=== PATIENT | male | born 1990 | race Caucasian/White ===

== ENCOUNTER 2016-08-22 19:51 | Emergency (ER) | payer MEDICAID, OTHER ==
[~2016-08-22] VITALS: Ht 170.2 cm; Wt 76.0 kg
[2016-08-22 20:27] VITALS: Ht 170.2 cm; Wt 76.0 kg
[2016-08-22] MEDS ORDERED: ACETAMINOPHEN 325 MG TAB PO ONE (22:00)
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
--- NOTE | 2016-08-22 22:35 | RADRPT ---
PROCEDURE: CT Cervical Spine without contrast. CLINICAL INDICATION: Neck pain status post fall. TECHNIQUE: The study was performed on a multislice multidetector CT scanner. Spiral axial 1 mm im ages were obtained through the cervical spine and reformatted at 2.5 mm slice thickness without cont rast. 1 or more of the following dose reduction techniques were utilized: Automated exposure contr ol, adjustment of the mA and/or kV according to patient's size, iterative reconstruction technique. Coronal and sagittal reformations were obtained. The images were reviewed on a PACS workstation. RADIATION DOSE: CTDIvol: 22.2 mGyDLP: 465.7 mGy-cm COMPARISON: No prior studies are available for comparison. FINDINGS: There is diffuse straightening the cervical spine without reversal of normal cervical lordosis. The vertebral body heights are maintained. There is no evidence of fracture or dislocation. The marro w density is within normal limits. The intervertebral disc spaces appear normal. The cervical canal is unremarkable. There is a no bone destruction or sclerosis. The paraspinal soft tissues are unrema rkable. No significant paraspinal soft tissue swelling. C2-3: The posterior margin of the disc, thecal sac and neural foramina are normal in appearance. C3-4: The posterior margin of the disc, thecal sac and neural foramina are normal in appearance. C4-5: The posterior margin of the disc, thecal sac and neural foramina are normal in appearance. C5-6: There is a 1-2 mm posterior disc/osteophyte complex. The thecal sac and neural foramina are p atent. C6-7: The posterior margin of the disc, thecal sac and neural foramina are normal in appearance. C7-T1: The posterior margin of the disc, thecal sac and neural foramina are normal in appearance. IMPRESSION: 1. No acute abnormality of the cervical spine. No evidence of fracture or dislocation. 2. Straightening of the cervical spine which may be related paraspinal muscle spasm versus positioni ng. 3. Minimal spondylosis/degenerative enthesopathy at C5-6 without significant narrowing of the cervi my thecal sac or neural foramina. RPTAT: HGAS .Sathish Moreland MD, MD Date Time Electronically viewed and signed by .Sathish Moreland MD, on 08/22/2016 22:35 .S/
--- NOTE | 2016-08-22 22:36 | RADRPT ---
PROCEDURE: XR shoulder. CLINICAL INDICATION: Right shoulder pain status post fall. TECHNIQUE: AP internal and external rotation views of the right shoulder were performed. COMPARISON: None available FINDINGS: The clavicle, scapula and proximal humerus are normal in appearance. The acromioclavicular joint is normal in appearance. There is no significant lateral downsloping of the acromion. The glenohumer al joint space is maintained. There is no evidence of fracture or dislocation. The right hemithora x is normal in appearance. The soft tissues are unremarkable. IMPRESSION: 1. Normal radiographs of the right shoulder. No evidence of fracture or dislocation. RPTAT: HGAS .Sathish Moreland MD, Date Time Electronically viewed and signed by .Sathish Moreland MD, on 08/22/2016 22:35 .S/
--- NOTE | 2016-08-22 22:37 | RADRPT ---
PROCEDURE: XR Chest. CLINICAL INDICATION: Chest pain status post fall. TECHNIQUE: AP view of the chest was obtained. COMPARISON: None available FINDINGS: The cardiomediastinal silhouette is within normal limits. The lungs are clear. No signs of pleural f luid or pneumothorax are seen. The osseous structures and soft tissues are unremarkable. IMPRESSION: 1. No evidence for active cardiopulmonary disease. BothRPTAT: HGAS .Sathish Moreland MD, MD Date Time Electronically viewed and signed by .Sathish Moreland MD, on 08/22/2016 22:36 .S/
[2016-08-22] MEDS ORDERED: ACET500C5 PO (23:20)
[2016-08-22] MEDS ORDERED: KETOROLAC 30 MG INJ IM STA (23:21)
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
--- NOTE | 2016-08-23 00:19 | RADRPT ---
PROCEDURE: CT Maxillofacial without. CLINICAL INDICATION: Trauma. TECHNIQUE: The study was performed utilizing a multi-slice, multidetector CT scanner. Direct spira l 1 mm axial sections were obtained through the head without the use of intravenous contrast materia l. 1 or more of the following dose reduction techniques were utilized: Automated exposure control, adjustment of the mA and/or kV according to patient's size, iterative reconstruction technique. Co roxi and sagittal reformations were obtained. The images were reviewed on a PACS workstation. RADIATION DOSE: CTDIvol: 29.5 mGyDLP: 567.0 mGy-cm COMPARISON: No prior studies are available for comparison. FINDINGS: The maxilla, zygomatic arches and ethmoid bone intact. The nasal bone is intact. The nasal spine o f the maxilla is intact. The visualized mandible is normal in appearance. There is no evidence of facial bone fracture. The soft tissues are unremarkable. Limited visualization of the intracranial contents is normal in appearance. The nasopharynx and oropharynx are normal in appearance. There a re severe inflammatory changes of the bilateral maxillary sinuses with mild to moderate inflammatory changes of the bilateral ethmoid air cells. Sphenoid sinuses and frontal sinuses are normally aera tosha. There is opacification of the left ostiomeatal unit, with suggestion of partial opacification of the right ostiomeatal unit. There is a accessory maxillary ostia on the right, normal variant (a xial series image 180). IMPRESSION: 1. Normal CT of the maxillofacial region. No evidence of fracture. 2. Severe inflammatory changes of the bilateral maxillary sinuses with suggestion of ostiomeatal un it obstruction. Mild to moderate inflammatory changes of the bilateral ethmoid air cells. RPTAT: HGAS .Sathish Moreland MD, Date Time Electronically viewed and signed by .Sathish Moreland MD, on 08/23/2016 00:18 .S/
[2016-08-23 00:32] VITALS: BP 128/84; PULSE 84; RESP 18; TEMP 98
== END 2016-08-23 00:34 | disposition home or self-care (01) ==
LOC: FTE 19:51
DX: S00.81XA Abrasion of other part of head, initial encounter (principal); F17.210 Nicotine dependence, cigarettes, uncomplicated; R51 Headache; V18.4XXA Pedal cycle driver injured in noncollision transport accident in traffic accident, initial encounter
CPT/HCPCS: 70450; 70486; 71010; 72125; 73030; J1885; Z7610; 96372

== ENCOUNTER 2016-08-29 19:07 | Emergency (ER) | payer MEDICAID ==
[~2016-08-29] VITALS: Ht 160 cm; Wt 76.5 kg
[~2016-08-29 19:07] MED LIST: ACET500C5 PO
[2016-08-29 19:23] VITALS: Ht 160 cm; Wt 76.5 kg
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
[2016-08-29 20:19] LABS: URINE BLOOD (Dip) POC 1+ (NEGATIVE)
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
[2016-08-29] MEDS ORDERED: CIPR500T4 PO (21:33)
[2016-08-29] MEDS ORDERED: PHEN-538 PO (21:33)
[2016-08-29] MEDS ORDERED: TRAM50TA2 PO (21:33)
[2016-08-29 21:47] VITALS: BP 125/78; PULSE 71; RESP 15; TEMP 97.9
== END 2016-08-29 21:47 | disposition home or self-care (01) ==
LOC: FTE 19:07
DX: R51 Headache (principal); M26.621 Arthralgia of right temporomandibular joint; N30.01 Acute cystitis with hematuria; Z87.891 Personal history of nicotine dependence
CPT/HCPCS: 70450; 70486; 81003